=== PATIENT | male | born 1970 | race Caucasian/White ===

== ENCOUNTER 2023-01-29 13:28 | Emergency (ER) | payer OTHER, SELFPAY ==
[2023-01-29] VITALS (20 sets, daily range): BP systolic 84–137; BP diastolic 48–76; PULSE 40–80; RESP 12–18; TEMP 36.8; O2SAT 70–100
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
[2023-01-29] MEDS: KETOROLAC 30 MG/ML VIAL (*BKC) IM (15:54)
[2023-01-29] MEDS: HYDROcodone/acetaminophen (*CRX) 5-325 MG TABLET 1 TAB PO (15:54)
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
== END 2023-01-29 17:38 | disposition home or self-care (01) ==
PROVIDERS: Emergency Provider Nurse Practitioner Family
DX: S72.432A Displaced fracture of medial condyle of left femur, initial encounter for closed fracture (principal); X50.1XXA Overexertion from prolonged static or awkward postures, initial encounter
CPT/HCPCS: 73564; 96372; 99284; A9270; J1885